=== PATIENT | male | born 1970 | race Caucasian/White ===

== ENCOUNTER → 2020-06-06 | Outpatient (CLI) | payer OTHER ==
--- NOTE | 2020-06-06 12:59 | Diagnostic Imaging Report ---
INDICATION: Back pain. 3 views were obtained. FINDINGS: The alignment is normal. Vertebral body heights are well-maintained. No spondylolysis or spondylolisthesis. No fractures are identified. IMPRESSION: Unremarkable lumbar spine series. Dictated by: Dictated on workstation # [id number]
== END ==
LOC: RAD 11:15
DX: Z02.71 Encounter for disability determination (principal); M54.5 Low back pain
CPT/HCPCS: 72100

== ENCOUNTER → 2022-11-29 | Outpatient (CLI) | payer OTHER ==
--- NOTE | 2022-11-29 12:46 | Diagnostic Imaging Report ---
EXAMINATION: Lumbar spine radiographs, 3 views. COMPARISON: Lumbar spine radiographs June 06, 2020. HISTORY: 52-year-old male, low back pain. FINDINGS: There are 5 lumbar-type vertebral bodies. There are mild endplate degenerative changes at L3-L4 and L4-L5. There is moderate disc height loss at L5-S1. There is no identified compression deformity or fracture. The sacroiliac joints are unremarkable in appearance. IMPRESSION: 1. Disc degenerative changes of the lower lumbar spine most notable at L5-S1. Dictated by: Dictated on workstation # [id number]
== END ==
LOC: RAD 09:54
PROVIDERS: ATTEND Family Medicine
DX: M47.817 Spondylosis without myelopathy or radiculopathy, lumbosacral region (principal)
CPT/HCPCS: 72100